=== PATIENT | male | born 1990 | race Caucasian/White ===

== ENCOUNTER 2019-03-07 16:37 | Emergency (ER) | payer OTHER ==
[~2019-03-07] VITALS: Ht 193 cm; Wt 102.3 kg
[2019-03-07] MEDS ORDERED: IBUP1TAB7 PO (16:45)
[2019-03-07] MEDS ORDERED: APAP500T10 PO (16:45)
--- NOTE | 2019-03-07 17:43 | REP ---
Left ankle series: Four views. History: Trauma. Findings: Four views of the left ankle demonstrate an obliquely oriented fracture through the distal fibula with associated soft-tissue swelling. There is 3 mm of posterior displacement. No tibial fracture is seen. Ankle mortise is not widened. Impression: Obliquely oriented fracture through the distal fibula. Electronically Signed by Jose Horvath MD 03/07/2019 05:35 P
[2019-03-07 17:57] VITALS: BP 127/75
== END 2019-03-07 18:03 | disposition home or self-care (01) ==
LOC: M ED 16:37
DX: S82.432A Displaced oblique fracture of shaft of left fibula, initial encounter for closed fracture (principal); X50.1XXA Overexertion from prolonged static or awkward postures, initial encounter; Y92.89 Other specified places as the place of occurrence of the external cause; Y93.9 Activity, unspecified; Y99.1 Military activity

== ENCOUNTER 2019-03-26 15:39 | Emergency (ER) | payer OTHER ==
[~2019-03-26] VITALS: Ht 195.6 cm; Wt 104.5 kg
[~2019-03-26 15:39] MED LIST: APAP500T10 PO; IBUP1TAB7 PO
[2019-03-26 17:55] LABS: BASO % 0.2 % (0.0-1.0); EOS # 0.1 10^3/uL (0.0-0.50); EOS % 0.4 % (0.0-3.0); HEMATOCRIT 46.2 % (42.0-52.0); HEMOGLOBIN 15.9 g/dl (13.5-17.5); LYMPH # 1.3 10^3/uL (1.5-6.5); LYMPH % 11.1 % (24.0-44.0); MEAN CORPUSCULAR HEMOGLOBIN 30.6 pg (27.0-33.0); MEAN CORPUSCULAR HGB CONC 34.4 g/dl (32.0-36.5); MEAN CORPUSCULAR VOLUME 88.8 fl (80.0-96.0); MONO # 0.9 10^3/uL (0.0-0.8); MONO % 7.9 % (0.0-5.0); NEUTROPHILS # 9.5 10^3/uL (1.8-7.7); NEUTROPHILS % 80.1 % (36.0-66.0); PLATELET COUNT, AUTOMATED 343 10^3/uL (150-450); WHITE BLOOD COUNT 11.9 10^3/uL (4.0-10.0)
[2019-03-26] MEDS ORDERED: ONDANSETRON 4MG/2ML VIAL (J2405) IV ONE (18:15)
[2019-03-26] MEDS ORDERED: NS 1,000 ML IV ONE (18:15)
[2019-03-26 18:21] LABS: ALBUMIN 4.1 GM/DL (3.2-5.2); ALT/SGPT 37 U/L (12-78); BILIRUBIN,DIRECT 0.2 MG/DL (0.0-0.2); BILIRUBIN,TOTAL 0.6 MG/DL (0.2-1.0); LIPASE 54 U/L (73-393); TOTAL PROTEIN 8.2 GM/DL (6.4-8.2)
[2019-03-26] MEDS ORDERED: ISOVUE-370 76% 100ML VIAL (Q9967) As Ordered ONE (18:26)
[2019-03-26 19:26] LABS: BLOOD UREA NITROGEN 16 MG/DL (7-18); CALCIUM LEVEL 9.6 MG/DL (8.5-10.1); CARBON DIOXIDE LEVEL 28 MEQ/L (21-32); CHLORIDE LEVEL 105 MEQ/L (98-107); GLOMERULAR FILTRATION RATE > 60.0 (>60); GLUCOSE, FASTING 99 MG/DL (70-100); POTASSIUM SERUM 5.3 MEQ/L (3.5-5.1); SODIUM LEVEL 140 MEQ/L (136-145)
--- NOTE | 2019-03-26 19:58 | REPVR ---
EXAM: CT Abdomen and Pelvis With Contrast EXAM DATE/TIME: 03/26/2019 6:44 PM CLINICAL HISTORY: 28 years old, male; Abdominal pain; Localized; Lower; Additional info: Lower abd pain, hardeep blood stool TECHNIQUE: Imaging protocol: Axial computed tomography images of the abdomen and pelvis with intravenous contrast. Coronal and sagittal reformatted images were created and reviewed. Radiation optimization: All CT scans at this facility use at least one of these dose optimization techniques: automated exposure control; mA and/or kV adjustment per patient size (includes targeted exams where dose is matched to clinical indication); or iterative reconstruction. Contrast material: ISOVUE 370; Contrast volume: 100 ml; Contrast route: IV; COMPARISON: No relevant prior studies available. FINDINGS: ABDOMEN: Liver: Normal. No mass. Gallbladder and bile ducts: No calcified stones. No ductal dilation. Pancreas: Normal. No ductal dilation. Spleen: Normal. No splenomegaly. Adrenals: No mass. Kidneys and ureters: Unremarkable as visualized. No hydronephrosis. Stomach and bowel: Colonic wall thickening is visualized, most significant involving the transverse and descending colon. There is a tubular distention or wall thickening of the sigmoid colon. Additionally wall thickening is identified of the distal ascending colon and hepatic flexure. This is suggestive of colitis. No bowel obstruction. Appendix: No evidence of appendicitis. PELVIS: Bladder: Unremarkable as visualized. Reproductive: Unremarkable as visualized. ABDOMEN and PELVIS: Intraperitoneal space: No free air. No significant fluid collection. Bones/joints: A transitional vertebral body is identified at the lumbosacral junction. Increased concavity of the endplates within the lumbar and lower thoracic spine. Soft tissues: Unremarkable. Vasculature: No abdominal aortic aneurysm. Lymph nodes: Scattered retroperitoneal and intrapelvic lymph nodes are identified, several which are mildly enlarged. A left para-aortic lymph node measures 1.1 x 0.9 cm. These lymph nodes are nonspecific as to etiology. IMPRESSION: 1. Colonic wall thickening is visualized, suggestive of colitis. 2. Scattered retroperitoneal and intrapelvic lymph nodes are identified, several which are mildly enlarged. These lymph nodes are nonspecific as to etiology. 3. Additional findings described above. Electronically signed by: Shyam Moran On 03/26/2019 19:58:10 PM
[2019-03-26 20:30] VITALS: BP 131/79
[2019-03-26 20:40] LABS: INR 1.03; PROTHROMBIN TIME 13.6 SECONDS (12.1-14.4)
[2019-03-26 20:41] LABS: PARTIAL THROMBOPLASTIN TIME 36.6 SECONDS (25.4-37.6)
[2019-03-26] MEDS ORDERED: CIPR-249 PO (20:51)
[2019-03-26] MEDS ORDERED: ZOFR4TAB16 PO (20:51)
[2019-03-26] MEDS ORDERED: FLAG500T PO (20:51)
[2019-03-26] MEDS ORDERED: DICY20TA11 PO (20:53)
[2019-03-26] MEDS ORDERED: DICYCLOMINE 10 MG CAP PO ONE (21:00)
[2019-03-26] MEDS ORDERED: metroNIDAZOLE (FLAGYL) 500 MG TAB PO ONE (21:00)
[2019-03-26] MEDS ORDERED: CIPROFLOXACIN 500 MG TAB PO ONE (21:00)
== END 2019-03-26 21:22 | disposition home or self-care (01) ==
LOC: M ED 15:39
DX: K52.9 Noninfective gastroenteritis and colitis, unspecified (principal); K92.1 Melena; Z79.899 Other long term (current) drug therapy
CPT/HCPCS: 74177; 80047; 80048; 80076; 83605; 83690; 85025; 85610; 85730; 86850; 86900; 86901; 96374; 99284; J2405; Q9967

== ENCOUNTER 2019-07-04 08:25 | Day surgery (SDC) | payer OTHER ==
[~2019-07-04] VITALS: Ht 195.6 cm; Wt 111.0 kg
[~2019-07-04 08:25] MED LIST changes: +CIPR-249 PO; +DICY20TA11 PO; +FLAG500T PO; +NS 1,000 ML IV ONE; +ZOFR4TAB16 PO
[2019-07-04] MEDS ORDERED: propofoL 200 MG/20 ML VIAL As Ordered ONE ×2 (09:46→09:57)
[2019-07-04] MEDS ORDERED: LIDOCAINE 2% INJ 100 MG/5 ML SDV (FOR ANES.) As Ordered ONE (09:46)
--- NOTE | 2019-07-04 10:01 | ROOR ---
Patient Name: Saul Holland Procedure Date: 07/04/2019 9:42 AM Date of : 1990 Age: 29 Room: [facility] Gender: Male Note Status: Finalized Procedure: Total Colonoscopy to Cecum + ileoscopy Indications: Rectal bleeding Providers: Jamin Parekh MD Referring MD: Houston George Requesting Provider: Medicines: Monitored Anesthesia Care Complications: No immediate complications. Procedure: Pre-Anesthesia Assessment: - The heart rate, respiratory rate, oxygen saturations, blood pressure, adequacy of pulmonary ventilation, and response to care were monitored throughout the procedure. The Colonoscope was introduced through the anus and advanced to the cecum, identified by appendiceal orifice and ileocecal valve. The colonoscopy was performed without difficulty. The patient tolerated the procedure well. The quality of the bowel preparation was excellent. Findings: The perianal and digital rectal examinations were normal. Non-bleeding internal hemorrhoids were found during retroflexion. The hemorrhoids were small and Grade I (internal hemorrhoids that do not prolapse). No other significant abnormalities were identified in a careful examination of the remainder of the colon. The exam was otherwise without abnormality on direct and retroflexion views. The terminal ileum appeared normal. Impression: - Non-bleeding internal hemorrhoids. - The examination was otherwise normal on direct and retroflexion views. - The examined portion of the ileum was normal. - No specimens collected. - The exam was otherwise normal to the cecum. Recommendation: - Patient has a contact number available for emergencies. The signs and symptoms of potential delayed complications were discussed with the patient. Return to normal activities tomorrow. Written discharge instructions were provided to the patient. - High fiber diet. - Discharge patient to home. - Continue present medications. - Repeat colonoscopy at age 50 for screening purposes. - Return to referring physician. - The findings and recommendations were discussed with the patient's family. Jamin Parekh MD Jamin Parekh MD 07/04/2019 10:01:14 AM Electronically signed by Jamin Parekh MD Number of Addenda: 0 Note Initiated On: 07/04/2019 9:42 AM Estimated Blood Loss: Estimated blood loss: none.
[2019-07-04 10:24] VITALS: BP 136/80
== END 2019-07-04 10:33 | disposition home or self-care (01) ==
LOC: M OPP 08:25
PROVIDERS: ATTEND Internal Medicine Gastroenterology
DX: K62.5 Hemorrhage of anus and rectum (principal); K64.0 First degree hemorrhoids